=== PATIENT | male | born 1995 | race Native Hawaiian/Other Pacific Islander ===

== ENCOUNTER 2018-06-08 15:16 | Emergency (ER) | payer OTHER ==
[~2018-06-08] VITALS: Ht 193 cm; Wt 83.9 kg
[2018-06-08 15:22] VITALS: TEMP 98.5
[2018-06-08 16:06] LABS: PLATELET COUNT 204 K/uL (142-355)
[2018-06-08 16:20] VITALS: BP 127/78
== END 2018-06-08 16:20 | disposition home or self-care (01) ==
LOC: ED 15:16
DX: J02.9 Acute pharyngitis, unspecified (principal)
CPT/HCPCS: 36415; 85027; 87077; 87081; 87185; 87186; 87880; 99282